=== PATIENT | female | born 1975 | race Caucasian/White ===

== ENCOUNTER 2016-11-20 10:33 | Emergency (ER) | payer MEDICAID, OTHER ==
[~2016-11-20 10:33] MED LIST: GLUCTAB PO; IBUP-238 PO; LISI-360 PO; PARO40TA PO
[2016-11-20 10:36] VITALS: BP 202/110; PULSE 84; RESP 24; TEMP 97.8; O2SAT 96
[2016-11-20 12:24] VITALS: BP 161/59
[2016-11-20] MEDS ORDERED: SODIUM CHLORIDE 0.9% FLUSH 10 ML FLUSH IVF PRN (12:45)
[2016-11-20 13:05] VITALS: BP_SYST 140; BP_SYST 142; BP_DIAS 94; PULSE 74; RESP 18; O2SAT 96; O2SAT 99
[2016-11-20 13:16] LABS: BASOPHIL # 0.1 TH/MM3 (0-0.2); BASOPHIL % 0.7 % (0.0-2.0); EOSINOPHIL # 0.3 TH/MM3 (0-0.4); EOSINOPHIL % 3.4 % (0.0-4.0); HEMATOCRIT 44.6 % (35.0-46.0); HEMO FLAGS DIFF FINAL; LYMPH % 36.7 % (9.0-44.0); LYMPHOCYTE # 3.4 TH/MM3 (1.0-4.8); MEAN CELL VOLUME 96.9 FL (80.0-100.0); MEAN CORPUSCULAR HGB CONC 34.1 % (32.0-36.0); MONO % 6.5 % (0.0-8.0); NEUT % 52.7 % (16.0-70.0); PLATELET COUNT 232 TH/MM3 (150-450); RED CELL DISTRIBUTION WIDTH 13.1 % (11.6-17.2); WHITE BLOOD COUNT 9.4 TH/MM3 (4.0-11.0)
[2016-11-20 13:20] LABS: BACTERIA, URINE RARE /hpf; BLOOD, URINE NEG (NEG); COMMENT (UR) CULT NOT INDICATED; CULTURE IF INDICATED CULT NOT INDICATED; GLUCOSE,URINE TRACE mg/dL (NEG); KETONE, URINE NEG (NEG); MUCUS URINE FEW /lpf (OCC); NITRITE,URINE NEG (NEG); PH, URINE 6.5 (5.0-8.5); SQUAMOUS EPITHELIAL CELL URINE 3 /hpf (0-5); URINE COLOR YELLOW (YELLW/STRAW)
--- NOTE | 2016-11-20 13:20 | PD ---
HPI Chief Complaint: Hypertension Time Seen by Provider: 12:45 Travel History International Travel<30 days: No Contact w/Intl Traveler<30days: No Traveled to known affect area: No History of Present Illness HPI Patient is a 41-year-old female presenting to emergency Department for evaluation of high blood pressure. She reports being out of her blood pressure medications for approximately one month since she lost her health insurance. Additionally she states that she has been short of breath, waking up gasping for air. She has very little exercise tolerance stating that with minimal exertion she gets fatigued. She reports feeling as if she is drowning. She states that walking from room to room or getting dressed causes her to feel very short of breath. She reports increased swelling in her lower extremities. She denies any chest pain, palpitations. She reports occasional nausea with a dull headache. Patient also reports feeling very thirsty with frequent urination. Patient's past medical history includes hyperlipidemia, hypertension , cerebral palsy, type 2 diabetes. Patient is not checking her blood sugars at home. She had been on Lisinopril/HCTZ 10/12.5mg. PFSH Past Medical History Blood Disorders: No Heart Rhythm Problems: No Cardiac Catheterization: No Cerebral Palsy: Yes High Cholesterol: Yes Congestive Heart Failure: No Cerebrovascular Accident: No Diabetes: Yes (METFORMIN) Patient Takes Glucophage: Yes Gastrointestinal Disorders: No Hypertension: Yes Medical other: Yes (cerebral palsy) Myocardial Infarction: No Renal Failure: No Ulcer: No ?: Not Past Surgical History Coronary Artery Bypass Graft: No Neurologic Surgery: Yes (HX OF CP) Social History Alcohol Use: No Tobacco Use: No Substance Use: No Allergies-Medications (Allergen,Severity, Reaction): Coded Allergies: Sulfa (Verified Allergy, Severe, Anaphylaxis, 11/20/16) Reported Meds & Prescriptions Reported Meds & Active Scripts Active Motrin (Ibuprofen) 800 Mg Tab 800 Mg PO TID Paxil (Paroxetine HCl) 40 Mg Tab 40 Mg PO DAILY Reported Lisinopril 10 mg (Lisinopril) 10 Mg Tab 1 Tab PO DAILY Metformin (Metformin HCl) 500 Mg Tab 1,000 Mg PO BID Review of Systems Except as stated in HPI: all other systems reviewed are Neg HENT: Positive: Headaches Cardiovascular: Positive: Dyspnea on exertion, Edema, No: Chest Pain or Discomfort Respiratory: Positive: Shortness of Breath, No: Cough, Wheezing Gastrointestinal: Positive: Nausea, No: Vomiting, Diarrhea, Abdominal Pain Genitourinary: No: Dysuria Neurologic: No: Weakness, Dizziness, Focal Abnormalities Physical Exam Narrative GENERAL: Overweight, well-developed, alert female. Resting comfortably in no acute distress. SKIN: Warm and dry. HEAD: Atraumatic. Normocephalic. EYES: Pupils equal and round. No scleral icterus. No injection or drainage. ENT: No nasal bleeding or discharge. Mucous membranes pink and moist. NECK: Trachea midline. No JVD. CARDIOVASCULAR: Regular rate and rhythm. RESPIRATORY: No accessory muscle use. Clear to auscultation. Breath sounds equal bilaterally. GASTROINTESTINAL: Abdomen obese, soft, non-tender, nondistended. Hepatic and splenic margins not palpable. MUSCULOSKELETAL: Extremities without clubbing, cyanosis. Trace peripheral edema. No obvious deformities. Patient is neurovascularly intact. NEUROLOGICAL: Awake and alert. No obvious cranial nerve deficits. Motor grossly within normal limits. Five out of 5 muscle strength in the arms and legs. Normal speech. PSYCHIATRIC: Appropriate mood and affect; insight and judgment normal. Data Data Last Documented VS Vital Signs Date Time Temp Pulse Resp B/P Pulse Ox O2 Delivery O2 Flow Rate FiO2 11/20/16 13:05 74 18 142/94 96 Room Air 11/20/16 10:36 97.8 Orders Complete Blood Count With Diff (11/20/16 12:40) Comprehensive Metabolic Panel (11/20/16 12:40) B-Type Natriuretic Peptide (11/20/16 12:40) Act Partial Throm Time (Ptt) (11/20/16 12:40) Prothrombin Time / Inr (Pt) (11/20/16 12:40) Magnesium (Mg) (11/20/16 12:40) Ckmb (Isoenzyme) Profile (11/20/16 12:40) Troponin I (11/20/16 12:40) Urinalysis - C+S If Indicated (11/20/16 12:40) Iv Access Insert/Monitor (11/20/16 12:40) Electrocardiogram (11/20/16 12:40) Ecg Monitoring (11/20/16 12:40) Oximetry (11/20/16 12:40) Oxygen Administration (11/20/16 12:40) Chest, Single Ap (11/20/16 12:40) Sodium Chloride 0.9% Flush (Ns Flush) (11/20/16 12:45) Beta Hydroxybutyrate (Acetone) (11/20/16 12:40) D-Dimer (11/20/16 13:55) Resp Request For Service (11/20/16 ) Labs Laboratory Tests Test 11/20/16 11/20/16 12:40 13:00 Urine Color YELLOW Urine Turbidity HAZY Urine pH 6.5 Urine Specific [place] 1.023 Urine Protein NEG mg/dL Urine Glucose (UA) TRACE mg/dL Urine Ketones NEG mg/dL Urine Occult Blood NEG Urine Nitrite NEG Urine Bilirubin NEG Urine Urobilinogen LESS THAN 2.0 MG/DL Urine Leukocyte Esterase TRACE Urine RBC 2 /hpf Urine WBC LESS THAN 1 /hpf Urine Squamous Epithelial 3 /hpf Cells Urine Bacteria RARE /hpf Urine Mucus FEW /lpf Microscopic Urinalysis Comment CULT NOT INDICATED White Blood Count 9.4 TH/MM3 Red Blood Count 4.60 MIL/MM3 Hemoglobin 15.2 GM/DL Hematocrit 44.6 % Mean Corpuscular Volume 96.9 FL Mean Corpuscular Hemoglobin 33.0 PG Mean Corpuscular Hemoglobin 34.1 % Concent Red Cell Distribution Width 13.1 % Platelet Count 232 TH/MM3 Mean Platelet Volume 8.6 FL Neutrophils (%) (Auto) 52.7 % Lymphocytes (%) (Auto) 36.7 % Monocytes (%) (Auto) 6.5 % Eosinophils (%) (Auto) 3.4 % Basophils (%) (Auto) 0.7 % Neutrophils # (Auto) 5.0 TH/MM3 Lymphocytes # (Auto) 3.4 TH/MM3 Monocytes # (Auto) 0.6 TH/MM3 Eosinophils # (Auto) 0.3 TH/MM3 Basophils # (Auto) 0.1 TH/MM3 CBC Comment DIFF FINAL Differential Comment Prothrombin Time 10.0 SEC Prothromb Time International 0.9 RATIO Ratio Activated Partial 26.9 SEC Thromboplast Time D-Dimer Quantitative (PE/DVT) 0.42 MG/L FEU Sodium Level 141 MEQ/L Potassium Level 3.9 MEQ/L Chloride Level 105 MEQ/L Carbon Dioxide Level 26.9 MEQ/L Anion Gap 9 MEQ/L Blood Urea Nitrogen 14 MG/DL Creatinine 0.66 MG/DL Estimat Glomerular Filtration 99 ML/MIN Rate Random Glucose 120 MG/DL Calcium Level 8.9 MG/DL Magnesium Level 2.1 MG/DL Total Bilirubin 0.4 MG/DL Aspartate Amino Transf 53 U/L (AST/SGOT) Alanine Aminotransferase 95 U/L (ALT/SGPT) Alkaline Phosphatase 78 U/L Total Creatine Kinase 89 U/L Troponin I LESS THAN 0.02 NG/ML B-Type Natriuretic Peptide 16 PG/ML Total Protein 7.3 GM/DL Albumin 3.5 GM/DL B-Hydroxybutyrate 0.06 MMOL/L MDM Medical Decision Making Medical Screen Exam Complete: Yes Emergency Medical Condition: Yes Medical Record Reviewed: Yes Interpretation(s) Last Impressions Chest X-Ray 11/20/16 1240 Signed Impressions: Service Date/Time: Sunday, November 20, 2016 13:10 - CONCLUSION: 1. No acute cardiopulmonary disease. Alexis Lundberg MD Laboratory Tests Test 11/20/16 11/20/16 12:40 13:00 Urine Color YELLOW Urine Turbidity HAZY Urine pH 6.5 Urine Specific Weston 1.023 Urine Protein NEG mg/dL Urine Glucose (UA) TRACE mg/dL Urine Ketones NEG mg/dL Urine Occult Blood NEG Urine Nitrite NEG Urine Bilirubin NEG Urine Urobilinogen LESS THAN 2.0 MG/DL Urine Leukocyte Esterase TRACE Urine RBC 2 /hpf Urine WBC LESS THAN 1 /hpf Urine Squamous Epithelial 3 /hpf Cells Urine Bacteria RARE /hpf Urine Mucus FEW /lpf Microscopic Urinalysis Comment CULT NOT INDICATED White Blood Count 9.4 TH/MM3 Red Blood Count 4.60 MIL/MM3 Hemoglobin 15.2 GM/DL Hematocrit 44.6 % Mean Corpuscular Volume 96.9 FL Mean Corpuscular Hemoglobin 33.0 PG Mean Corpuscular Hemoglobin 34.1 % Concent Red Cell Distribution Width 13.1 % Platelet Count 232 TH/MM3 Mean Platelet Volume 8.6 FL Neutrophils (%) (Auto) 52.7 % Lymphocytes (%) (Auto) 36.7 % Monocytes (%) (Auto) 6.5 % Eosinophils (%) (Auto) 3.4 % Basophils (%) (Auto) 0.7 % Neutrophils # (Auto) 5.0 TH/MM3 Lymphocytes # (Auto) 3.4 TH/MM3 Monocytes # (Auto) 0.6 TH/MM3 Eosinophils # (Auto) 0.3 TH/MM3 Basophils # (Auto) 0.1 TH/MM3 CBC Comment DIFF FINAL Differential Comment Prothrombin Time 10.0 SEC Prothromb Time International 0.9 RATIO Ratio Activated Partial 26.9 SEC Thromboplast Time D-Dimer Quantitative (PE/DVT) 0.42 MG/L FEU Sodium Level 141 MEQ/L Potassium Level 3.9 MEQ/L Chloride Level 105 MEQ/L Carbon Dioxide Level 26.9 MEQ/L Anion Gap 9 MEQ/L Blood Urea Nitrogen 14 MG/DL Creatinine 0.66 MG/DL Estimat Glomerular Filtration 99 ML/MIN Rate Random Glucose 120 MG/DL Calcium Level 8.9 MG/DL Magnesium Level 2.1 MG/DL Total Bilirubin 0.4 MG/DL Aspartate Amino Transf 53 U/L (AST/SGOT) Alanine Aminotransferase 95 U/L (ALT/SGPT) Alkaline Phosphatase 78 U/L Total Creatine Kinase 89 U/L Troponin I LESS THAN 0.02 NG/ML B-Type Natriuretic Peptide 16 PG/ML Total Protein 7.3 GM/DL Albumin 3.5 GM/DL B-Hydroxybutyrate 0.06 MMOL/L Vital Signs Date Time Temp Pulse Resp B/P Pulse Ox O2 Delivery O2 Flow Rate FiO2 11/20/16 12:24 161/59 11/20/16 10:36 97.8 84 24 202/110 96 Room Air Differential Diagnosis CHF versus pneumonia versus bronchitis versus ACS versus less likely PE versus metabolic abnormality versus DKA Narrative Course Patient is a 41-year-old female presenting for evaluation of shortness of breath and generally feeling unwell for the last month that she's been out of her blood pressure medications. Vital signs are stable, IV access established, patient placed on telemetry monitoring and continuous pulse oximetry. Initial EKG shows sinus rhythm with an incomplete right bundle block, this is consistent with prior EKG. CBC is unremarkable Chemistry with no acute abnormalities noted, cardiac enzymes negative 1 set, BNP 16 Beta hydroxybutyrate 0.06 Urinalysis is unremarkable D-dimer is negative Chest x-ray shows no acute disease According to PERC rules the probability for PE is less than 2%, additionally D- Dimer is negative. Pt will be provided with a refill of lisinopril/hctz. She will be given information regarding the [facility]. She was advised to return to the ED immediately for any new or worsening symptoms. Pt verbalized understanding of instructions. Pt is stable for discharge. Diagnosis Primary Impression: Hypertension Qualified Code: I10 - Hypertension, unspecified type Additional Impression: Exertional dyspnea Referrals: [facility] 1 week Patient Instructions: 2 Gram Sodium Diet (GEN), Dyspnea (GEN), Dyspnea Scale and Exercise (ED), General Instructions, Hypertension (ED) Additional Instructions: Follow up at the [facility] Take medications as directed Maintain a low sodium diet Return to the Emergency Department for any new or worsening symptoms. Med/Other Pt SpecificInfo: Prescription(s) given Scripts Lisinopril-Hctz 10-12.5 Mg Tab1 Tab PO DAILY #30 TAB Ref 0 Prov:Rachelle Jacobson 11/20/16 Disposition: 01 DISCHARGE HOME Condition: Stable Rachelle Jacobson Nov 20, 2016 13:20
[2016-11-20 13:24] LABS: APTT (PATIENT) 26.9 SEC (24.3-30.1); INTERNATIONAL NORMALIZED RATIO 0.9 RATIO
[2016-11-20 13:32] LABS: ALT (GPT) 95 U/L (10-53); ANION GAP 9 MEQ/L (5-15); AST (GOT) 53 U/L (15-37); BETA-HYDROXYBUTYRATE 0.06 MMOL/L (0.00-0.39); BICARBONATE 26.9 MEQ/L (21.0-32.0); BLOOD UREA NITROGEN 14 MG/DL (7-18); CHLORIDE 105 MEQ/L (98-107); GLOMERULAR FILTRATION RATE 99 ML/MIN (>89); MAGNESIUM 2.1 MG/DL (1.5-2.5); POTASSIUM 3.9 MEQ/L (3.5-5.1); SODIUM (NA) 141 MEQ/L (136-145)
[2016-11-20 13:35] LABS: ALKALINE PHOSPHATASE 78 U/L (45-117); TOTAL BILIRUBIN ADULT 0.4 MG/DL (0.2-1.0)
[2016-11-20 13:38] LABS: CREATINE KINASE 89 U/L (26-192)
--- NOTE | 2016-11-20 13:44 | RADRPT ---
EXAM DATE/TIME: 11/20/2016 13:10 [facility] COMPARISON: CHEST SINGLE AP, November 23, 2015, 9:09. INDICATIONS : Short of breath and difficulty breathing. MEDICAL HISTORY : Hypertension. Diabetes mellitus type 2. SURGICAL HISTORY : None. ENCOUNTER: Initial ACUITY: 2 days PAIN SCORE: 3/10 LOCATION: Bilateral chest FINDINGS: A single view of the chest demonstrates the lungs to be symmetrically aerated without evidence of mas s, infiltrate or effusion. The cardiomediastinal contours are unremarkable. Osseous structures are intact. CONCLUSION: 1. No acute cardiopulmonary disease. Alexis Lundberg MD on November 20, 2016 at 13:42 Board Certified Radiologist. This report was verified electronically.
[2016-11-20] MEDS ORDERED: LISI10TA PO (14:52)
[2016-11-20 16:17] VITALS: BP 128/81
--- NOTE | 2016-11-21 13:01 | EKG ---
Date Performed: 11/20/2016 Time Performed: 12:55:01 PTAGE: 41 years EKG: Sinus rhythm INCOMPLETE RIGHT BUNDLE BRANCH BLOCK NONSPECIFIC T-WAVE ABNORMALITY BORDERLINE ECG PREVIOUS TRACING : 11/23/2015 16.23 DOCTOR: Jefry Aguillon Interpretating Date/Time 11/21/2016 12:55:51
== END 2016-11-20 16:18 | disposition home or self-care (01) ==
LOC: NEPD 10:33
DX: I10 Essential (primary) hypertension (principal); R06.09 Other forms of dyspnea; R06.02 Shortness of breath; I45.10 Unspecified right bundle-branch block; R11.0 Nausea; R53.83 Other fatigue; M79.89 Other specified soft tissue disorders; R51 Headache; R35.0 Frequency of micturition
CPT/HCPCS: 71010; 80053; 81001; 82010; 82550; 83735; 83880; 84484; 85025; 85379; 85610; 85730; 93005; 99285

== ENCOUNTER 2017-04-27 06:47 | Emergency (ER) | payer MEDICAID ==
[~2017-04-27] VITALS: Ht 162.6 cm; Wt 120.0 kg
[~2017-04-27 06:47] MED LIST changes: +LISI10TA PO
[2017-04-27 06:48] VITALS: BP 175/88; PULSE 79; RESP 16; TEMP 99; O2SAT 98
[2017-04-27] MEDS ORDERED: predniSONE 20 MG TAB PO ONE (07:15)
[2017-04-27] MEDS ORDERED: OMEP20TA93 PO (07:15)
[2017-04-27] MEDS ORDERED: METF-382 PO (07:15)
[2017-04-27] MEDS ORDERED: CLINDAMYCIN PHOS 600 MG/4 ML VIAL IM ONE (07:15)
[2017-04-27] MEDS ORDERED: PAXI10TA8 PO (07:15)
[2017-04-27] MEDS ORDERED: KETOROLAC TROMETHAMINE 60 MG/2 ML (IM) VIAL IM ONE (07:15)
[2017-04-27] MEDS ORDERED: CLIN150C14 PO (07:20)
[2017-04-27] MEDS ORDERED: PERI0.126 SWISH-SPIT (07:20)
[2017-04-27] MEDS ORDERED: TRAM50TA PO (07:20)
--- NOTE | 2017-04-27 07:21 | PD ---
HPI Chief Complaint: Oral / Dental Pain or Problem Time Seen by Provider: 07:17 Travel History International Travel<30 days: No Contact w/Intl Traveler<30days: No Traveled to known affect area: No History of Present Illness HPI 41-year-old female presents to the emergency Department with complaint of continued left upper tooth pain 3 days. Was seen on at urgent care and was given amoxicillin which she has been taking with worsening of symptoms. Reports mild facial edema and upper lip edema. Denies sore throat, difficulty swallowing, unusual drooling. Denies fever, vomiting. Denies radiation of pain. Has been taking ibuprofen without relief of pain. Has not tried any other treatments to alleviate her symptoms. Rates pain 01/05. Describes it as a throbbing sensation. No known relieving factors. Pain is constantly aggravated. Has an appointment with a dentist on through [facility]. [facility] his primary care provider. Allergies to sulfa. History of hypertension and diabetes mellitus type 2. Blood sugars have been between 150 and 170. Has no other medical complaints. No other modifying factors or associated signs and symptoms. PFSH Past Medical History Blood Disorders: No Heart Rhythm Problems: No Cardiac Catheterization: No Cerebral Palsy: Yes High Cholesterol: Yes Congestive Heart Failure: No Cerebrovascular Accident: No Diabetes: Yes Diminished Hearing: No Gastrointestinal Disorders: No Heparin Induced Thrombocytopen: No Hypertension: Yes Immunizations Current: No Myocardial Infarction: No Renal Failure: No Ulcer: No Past Surgical History Coronary Artery Bypass Graft: No Neurologic Surgery: Yes (HX OF CP) Social History Alcohol Use: No Tobacco Use: No Substance Use: No Allergies-Medications (Allergen,Severity, Reaction): Coded Allergies: Sulfa (Sulfonamide Antibiotics) (Unverified Allergy, Severe, Anaphylaxis, 04/27/17) Reported Meds & Prescriptions Reported Meds & Active Scripts Active Deltasone (Prednisone) 20 Mg Tab 20 Mg PO BID 5 Days Peridex Liq (Chlorhexidine Gluconate (Mouth) Liq) 0.12% Soln 15 Ml SWISH-SPIT BID 10 Days Tramadol (Tramadol HCl) 50 Mg Tab 50 Mg PO Q4H PRN Clindamycin (Clindamycin HCl) 150 Mg Cap 450 Mg PO Q6H 10 Days Lisinopril-Hctz 10-12.5 Mg Tab 1 Tab PO DAILY Reported Paxil (Paroxetine HCl) 10 Mg Tab 20 Mg PO DAILY Metformin ER (Metformin HCl) 1,000 Mg Neil 1,000 Mg PO DAILY With evening meal Omeprazole 20 Mg Tab 20 Mg PO DAILY Review of Systems Except as stated in HPI: all other systems reviewed are Neg Physical Exam Narrative GENERAL: Well-nourished, well-developed female patient, in no acute distress; afebrile, nontoxic-appearing SKIN: Warm and dry. HEAD: Atraumatic. Normocephalic. mild left upper lip/facial edema; without erythema; with tenderness on palpation. No lymphadenopathy. EYES: Pupils equal and round. No scleral icterus. No injection or drainage. ENT: Mucosa pink and moist. No erythema or exudates. No uvular edema. No uvular , palatal, or tonsillar deviation. Airway patent. EARS: Bilateral pinnae and external canals appear within normal limits. Bilateral tympanic membranes without erythema, dullness or perforation. MOUTH: Mucous membranes moist, no lesions, tongue and gums appear normal. Tooth #13 with tenderness on palpation; tooth is decayed tot he gum line. Surrounding gingiva is without erythema, edema, drainage. No obvious abscess noted. NECK: Trachea midline. No lymphadenopathy. CARDIOVASCULAR: Regular rate. RESPIRATORY: No accessory muscle use. GASTROINTESTINAL: Obese. MUSCULOSKELETAL: No obvious deformities. No clubbing. No cyanosis. No edema. NEUROLOGICAL: Awake and alert. Oriented 3. No obvious cranial nerve deficits. Motor grossly within normal limits. Normal speech. PSYCHIATRIC: Appropriate mood and affect; insight and judgment normal. Data Data Last Documented VS Vital Signs Date Time Temp Pulse Resp B/P (MAP) Pulse Ox O2 Delivery O2 Flow Rate FiO2 04/27/17 06:48 99.0 79 16 175/88 (117) 98 Room Air Orders Orders Ketorolac Inj (Toradol Inj) (04/27/17 07:15) Clindamycin Inj (Cleocin Inj) (04/27/17 07:15) Prednisone (Deltasone) (04/27/17 07:15) Ed Discharge Order (04/27/17 07:27) [facility] Medical Decision Making Medical Screen Exam Complete: Yes Emergency Medical Condition: Yes Medical Record Reviewed: Yes Differential Diagnosis Dentalgia, dental abscess, dental caries, gingivitis Narrative Course 41-year-old female with dentalgia tooth #13. She has mild left facial edema. Afebrile and nontoxic appearing. Denies fever, vomiting. Patient is currently taking amoxicillin. Instructed patient to stop taking amoxicillin. Clindamycin IM 600 mg, Deltasone, Toradol administered in the ER. Clindamycin, Peridex mouth rinse, tramadol, Deltasone prescribed for home. Patient has an appointment on with dentist. Instructed patient to follow up with dentist. Instructed patient to follow up with primary care provider. Patient verbalizes understanding and agreement with treatment plan. Patient is medically cleared and stable for discharge. Discussed reasons to return to the emergency department. Patient agrees with treatment plan. The patients vital signs are stable and the patient is stable for outpatient follow-up and treatment. Patient discharged home, stable and in no acute distress. Diagnosis Primary Impression: Dentalgia Referrals: Dentist Primary Care Physician Patient Instructions: Dental Abscess (ED), Dental Caries (ED), General Instructions, Gingivitis (ED), Toothache (ED) Additional Instructions: Complete full course of antibiotics Ibuprofen or Tylenol as directed and as needed to reduce pain and inflammation Use Peridex as directed for oral hygiene Warm or cool compresses to the affected area Follow-up with dentist Follow-up with primary care provider Return to emergency department immediately with worsening of symptoms Med/Other Pt SpecificInfo: Prescription(s) given Scripts Prednisone (Deltasone) 20 Mg Tab 20 MG PO BID for 5 Days, #10 TAB 0 Refills Prov: uRby Grnaados 04/27/17 Chlorhexidine Gluconate (Mouth) Liq (Peridex Liq) 0.12% Soln 15 ML SWISH-SPIT BID for 10 Days, #300 ML 0 Refills Prov: Ruby Granados 04/27/17 Tramadol (Tramadol) 50 Mg Tab 50 MG PO Q4H Y for PAIN, #10 TAB 0 Refills Prov: Ruby Granados 04/27/17 Clindamycin (Clindamycin) 150 Mg Cap 450 MG PO Q6H for Infection for 10 Days, #120 CAP 0 Refills Prov: Ruby Granados 04/27/17 Disposition: 01 DISCHARGE HOME Condition: Stable Ruby Granados Apr 27, 2017 07:21
[2017-04-27] MEDS ORDERED: PRED-503 PO (07:24)
== END 2017-04-27 08:33 | disposition home or self-care (01) ==
LOC: NEPD 06:47
DX: K08.89 Other specified disorders of teeth and supporting structures (principal); K02.9 Dental caries, unspecified; I10 Essential (primary) hypertension; E11.9 Type 2 diabetes mellitus without complications; E78.00 Pure hypercholesterolemia, unspecified; G80.9 Cerebral palsy, unspecified; Z88.2 Allergy status to sulfonamides; Z79.84 Long term (current) use of oral hypoglycemic drugs
CPT/HCPCS: 96372; 99283; J1885; J7512; 99282

== ENCOUNTER 2017-10-05 10:20 | Emergency (ER) | payer MEDICAID ==
[~2017-10-05] VITALS: Ht 162.6 cm; Wt 122.5 kg
[~2017-10-05 10:20] MED LIST changes: +CLIN150C14 PO; -GLUCTAB PO; -IBUP-238 PO; -LISI-360 PO; +METF-382 PO; +OMEP20TA93 PO; -PARO40TA PO; +PAXI10TA8 PO; +PERI0.126 SWISH-SPIT; +PRED-503 PO; +TRAM50TA PO
[2017-10-05 10:25] VITALS: BP 125/84; PULSE 77; RESP 16; TEMP 98.5; O2SAT 95
--- NOTE | 2017-10-05 10:47 | PD ---
HPI Chief Complaint: Musculoskeletal Complaint Time Seen by Provider: 10:43 Travel History International Travel<30 days: No Contact w/Intl Traveler<30days: No Traveled to known affect area: No History of Present Illness HPI 42-year-old female presents emergency department for evaluation of right forearm pain. Patient states that she has had this pain for 2 months. Her primary care provider put her on steroids that did not really help. She does not recall an injury but states that she falls frequently having a history of CP. She is uncertain if she bumped it or landed on it wrong. She does have a palpable bump on the medial aspect of the right midforearm. There is no deformity. Pain is constant, ache, mild in severity. It does not radiate anywhere. She has no other symptoms to report. PFSH Past Medical History Blood Disorders: No Depression: Yes Heart Rhythm Problems: No Cardiac Catheterization: No Cardiovascular Problems: Yes (HTN) Cerebral Palsy: Yes High Cholesterol: Yes Congestive Heart Failure: No Cerebrovascular Accident: No Diabetes: Yes Diminished Hearing: No Gastrointestinal Disorders: No Heparin Induced Thrombocytopen: No Hypertension: Yes Immunizations Current: No Myocardial Infarction: No Renal Failure: No Ulcer: No Past Surgical History Coronary Artery Bypass Graft: No Social History Alcohol Use: No Tobacco Use: No Substance Use: No Allergies-Medications (Allergen,Severity, Reaction): Coded Allergies: Sulfa (Sulfonamide Antibiotics) (Unverified Allergy, Severe, Anaphylaxis, 10/05/17) Reported Meds & Prescriptions Reported Meds & Active Scripts Active Lisinopril-Hctz 10-12.5 Mg Tab 1 Tab PO DAILY Reported Paxil (Paroxetine HCl) 10 Mg Tab 20 Mg PO DAILY Metformin ER (Metformin HCl) 1,000 Mg Neil 1,000 Mg PO DAILY With evening meal Review of Systems Except as stated in HPI: all other systems reviewed are Neg Physical Exam Narrative GENERAL: Well-nourished, well-developed female patient in no acute distress SKIN: Focused skin assessment warm/dry. HEAD: Normocephalic. EYES: No scleral icterus. No injection or drainage. NECK: Supple, trachea midline. No JVD or lymphadenopathy. CARDIOVASCULAR: Regular rate and rhythm without murmurs, gallops, or rubs. RESPIRATORY: Breath sounds equal bilaterally. No accessory muscle use. MUSCULOSKELETAL: No cyanosis, or edema. Tenderness elicited palpation over the medial aspect of the right posterior forearm. There is a 2 cm diameter palpable bump. It is not mobile. Patient has 5+ nonprofit director strength bilateral extremities. Sensation intact distal extremities per BACK: Nontender without obvious deformity. No CVA tenderness. Data Data Last Documented VS Vital Signs Date Time Temp Pulse Resp B/P (MAP) Pulse Ox O2 Delivery O2 Flow Rate FiO2 10/05/17 10:25 98.5 77 16 125/84 (98) 95 Orders Orders Forearm (2vws) (10/05/17 ) Ed Discharge Order (10/05/17 11:24) Splint Or Brace Apply/Monitor (10/05/17 11:24) Cockup Hand Splint (10/05/17 ) MDM Medical Decision Making Medical Screen Exam Complete: Yes Emergency Medical Condition: Yes Medical Record Reviewed: Yes Differential Diagnosis Carpal tunnel versus tendinitis versus contusion versus fracture Narrative Course 42-year-old female presents emergency department for evaluation right forearm pain. X-ray imaging confirms no acute bony abnormality. Patient is provided a Velcro wrist splint. She is counseled on care and encouraged to seek an specialist evaluation. She agrees to return immediately with acute worsening symptoms. Diagnosis Primary Impression: Right forearm pain Referrals: Primary Care Physician Patient Instructions: Arm Pain (ED), General Instructions Additional Instructions: Wrist brace for support Follow up with primary care provider Return to ED with acute worsening of symptoms Med/Other Pt SpecificInfo: No Change to Meds Disposition: 01 DISCHARGE HOME Condition: Stable NathalieLeleMary Gracejenaro HARRY Oct 05, 2017 10:47
--- NOTE | 2017-10-05 11:20 | RADRPT ---
EXAM DATE: 10/05/2017 11:05 AM EDT AGE/SEX: 42 years / Female INDICATIONS: Pain. No known injury. CLINICAL DATA: This is the patient's initial encounter. Patient reports that signs and symptoms have been present for 2 months and indicates a pain score of 9/10. MEDICAL/SURGICAL HISTORY: . Hypertension. Diabetes mellitus type 2. None. COMPARISON: No prior exams available for comparison. FINDINGS: Bony structures are intact and in normal alignment. Osseous density is normal. Soft tissues are unre markable. No radiopaque foreign bodies seen. CONCLUSION: Negative examination Electronically signed by: Lamont Gray MD 10/05/2017 11:19 AM EDT
== END 2017-10-05 11:44 | disposition home or self-care (01) ==
LOC: NEPD 10:20
DX: M79.631 Pain in right forearm (principal); R22.31 Localized swelling, mass and lump, right upper limb; E11.9 Type 2 diabetes mellitus without complications; E78.00 Pure hypercholesterolemia, unspecified; I10 Essential (primary) hypertension; G80.9 Cerebral palsy, unspecified; F32.9 Major depressive disorder, single episode, unspecified; Z88.2 Allergy status to sulfonamides; Z79.84 Long term (current) use of oral hypoglycemic drugs; Z79.899 Other long term (current) drug therapy; Z91.81 History of falling
CPT/HCPCS: 73090; 99283; L3908